=== PATIENT | female | born 1955 | race Caucasian/White ===

== ENCOUNTER 2017-01-10 10:54 | Emergency (ER) | payer SELFPAY ==
[2017-01-10 12:42] LABS: Bilirubin Negative (Negative); Clarity Hazy (Clear); Glucose, Urine (Dipstick) >=1000 mg/dL (Negative); Leukocyte Trace (Negative); Nitrite Negative (Negative); Protein, Urine (Dipstick) Negative (Neg-Trace); Urobilinogen 0.2 mg/dL (0.2-1.0); pH, Urine 5.5 (5.0-9.0)
[2017-01-10 12:43] LABS: Blood, Urine Large (Negative)
[2017-01-10 12:46] LABS: #Basophils 0.1 thou/uL (0.0-0.2); #Eosinphils 0.2 thou/uL (0.0-0.7); #Lymphocytes 1.8 thou/uL (1.20-3.40); #Monocytes 0.6 thou/uL (0.11-0.59); #Neutrophils 6.1 thou/uL (1.40-6.50); %Basophils 1.1 % (0.0-1.0); %Eosinophils 2.1 % (0.0-10.0); %Lymphocytes 20.3 % (21.0-51.0); %Monocytes 6.3 % (0.0-10.0); %Neutrophils 70.3 % (42.0-75.0); Hemoglobin 14.6 g/dL (12.0-16.0); Mean Corpuscular HGB CONC 36.2 g/dL (32.0-36.0); Mean Corpuscular Hemoglobin 32.2 pg (27.0-31.0); Mean Corpuscular Volume 88.9 fl (81.0-99.0); Mean Platelet Volume 8.2 fL (7.4-10.4); Platelet Count 181 thou/uL (130-400); RBC Distribution Width 11.6 % (11.5-14.5); Red Blood Cell (RBC) Count 4.52 mill/uL (4.20-5.40); White Blood Cell (WBC) Count 8.7 thou/uL (4.8-10.8)
[2017-01-10 12:58] LABS: Bacteria/HPF 1+ HPF (None Seen); RBC/HPF 21-50 HPF (0-3)
[2017-01-10] MEDS ORDERED: Ondansetron HCl/PF 4 MG/2 ML Vial ONE (12:59)
[2017-01-10] MEDS ORDERED: Clindamycin/D5W 600 mg/50 ml Premix Bag ONE (12:59)
[2017-01-10 13:03] LABS: ALT (SGPT) 14 U/L (8-55); AST (SGOT) 15 U/L (5-34); Albumin 4.3 g/dL (3.4-4.8); Alkaline Phosphatase 172 U/L (40-150); Anion Gap 16 mmol/L (10-20); BUN (Urea Nitrogen) 20 mg/dL (9.8-20.1); Calc. Creatinine Clearance 0 mL/min (70-130); Calcium 9.5 mg/dL (7.8-10.44); Carbon Dioxide 23 mmol/L (23-31); Chloride 100 mmol/L (98-107); Estimated GFR-MDRD 61; Globulin 3.2 g/dL (2.4-3.5); Glucose 355 mg/dL (80-115); Potassium 4.2 mmol/L (3.5-5.1); Protein, Total 7.5 g/dL (6.0-8.3); Sodium 135 mmol/L (136-145)
[2017-01-10] MEDS ORDERED: Insulin Regular 300 UNITS/3 ML VIAL ONE (13:30)
== END 2017-01-10 16:16 | disposition home or self-care (01) ==
LOC: MADERS 10:54
DX: T63.301A Toxic effect of unspecified spider venom, accidental (unintentional), initial encounter (principal); E11.65 Type 2 diabetes mellitus with hyperglycemia; N39.0 Urinary tract infection, site not specified; L08.9 Local infection of the skin and subcutaneous tissue, unspecified
CPT/HCPCS: 36416; 80053; 81001; 83880; 85025; 87040; 87070; 87077; 87086; 87186; 87205; 96365; 96367; 96375; 96376; 36415-59; J1815; J2270; J2405; J3370; J3490; J7050

== ENCOUNTER 2018-07-01 11:48 | Emergency (ER) | payer SELFPAY ==
[2018-07-01] MEDS ORDERED: Clindamycin/D5W 900 mg/50 ml Premix Bag ONE (12:46)
[2018-07-01] MEDS ORDERED: Sodium Chloride 0.9% 250 ML 250 ML ONE (12:47)
[2018-07-01 12:51] LABS: #Basophils 0.1 thou/uL (0.0-0.2); #Lymphocytes 1.3 thou/uL (1.20-3.40); #Monocytes 0.7 thou/uL (0.11-0.59); #Neutrophils 8.7 thou/uL (1.40-6.50); %Basophils 0.5 % (0.0-1.0); %Eosinophils 0.1 % (0.0-10.0); %Lymphocytes 11.7 % (21.0-51.0); %Monocytes 6.4 % (0.0-10.0); %Neutrophils 81.4 % (42.0-75.0); Hemoglobin 10.5 g/dL (12.0-16.0); Mean Corpuscular HGB CONC 34.9 g/dL (32.0-36.0); Mean Corpuscular Hemoglobin 31.3 pg (27.0-31.0); Mean Corpuscular Volume 89.6 fL (78.0-98.0); Mean Platelet Volume 6.5 fL (7.4-10.4); Platelet Count 234 thou/uL (130-400); RBC Distribution Width 11.5 % (11.5-14.5); Red Blood Cell (RBC) Count 3.34 mill/uL (4.20-5.40); White Blood Cell (WBC) Count 10.7 thou/uL (4.8-10.8)
[2018-07-01 13:05] LABS: ALT (SGPT) 13 U/L (8-55); AST (SGOT) 14 U/L (5-34); Albumin 3.6 g/dL (3.4-4.8); Alkaline Phosphatase 241 U/L (40-150); Anion Gap 16 mmol/L (10-20); BUN (Urea Nitrogen) 18 mg/dL (9.8-20.1); Bilirubin, Total 1.4 mg/dL (0.2-1.2); Calc. Creatinine Clearance 0 mL/min (70-130); Calcium 8.9 mg/dL (7.8-10.44); Carbon Dioxide 22 mmol/L (23-31); Chloride 99 mmol/L (98-107); Estimated GFR-MDRD 65; Globulin 3.4 g/dL (2.4-3.5); Glucose 434 mg/dL (80-115); Potassium 3.7 mmol/L (3.5-5.1); Sodium 133 mmol/L (136-145)
--- NOTE | 2018-07-01 13:08 | RAD ---
RIGHT FOOT THREE VIEWS: History: Pain. Infection. FINDINGS: There appears to be soft tissue swelling and possible subcutaneous emphysema along the lateral aspect of the right foot. Additionally, there appears to be edema involving the dorsum of the right foot. Chronic changes of the calcaneus. Lisfranc alignment is maintained. Joint spaces are preserved. No fr acture. IMPRESSION: 1. Soft tissue changes compatible with cellulitis. 2. No radiographic evidence of osteomyelitis. MRI if clinically warranted. POS: FANNY
[2018-07-01] MEDS ORDERED: Adacel (T-DAP) 0.5 ML VIAL ONE (14:06)
[2018-07-01] MEDS ORDERED: Ciprofloxacin Lactate/D5W 400 mg/200 ml Premix ONE (14:33)
== END 2018-07-01 14:46 | disposition short-term general hospital (02) ==
LOC: MADERS 11:48
DX: E11.621 Type 2 diabetes mellitus with foot ulcer (principal); L97.519 Non-pressure chronic ulcer of other part of right foot with unspecified severity; Z79.899 Other long term (current) drug therapy
CPT/HCPCS: 36415; 80053; 85025; 87040; 90471; 90715; 96365; 96367; 96375; J0744; J3370; J3490; J7050

== ENCOUNTER 2019-05-17 11:30 | Emergency (ER) | payer OTHER, SELFPAY ==
--- NOTE | 2019-05-17 12:11 | RAD ---
4 views of the left knee: 05/17/2019 COMPARISON: None HISTORY: Fall, trauma, pain FINDINGS: There is a comminuted transverse fracture through the midportion of the patella with 4 cm o f distraction in the craniocaudal dimension. There is an associated knee joint effusion. There is soft tissue swelling anteriorly. No evidence for dislocation. IMPRESSION: Acute fracture of the patella with marked distraction. Orthopedic consultation advised.
== END 2019-05-17 13:13 | disposition home or self-care (01) ==
LOC: MADERS 11:30
DX: S82.042A Displaced comminuted fracture of left patella, initial encounter for closed fracture (principal); S82.032A Displaced transverse fracture of left patella, initial encounter for closed fracture; E11.40 Type 2 diabetes mellitus with diabetic neuropathy, unspecified; Z79.899 Other long term (current) drug therapy; W18.30XA Fall on same level, unspecified, initial encounter

== ENCOUNTER 2020-02-05 10:24 | Emergency (ER) | payer SELFPAY ==
[2020-02-05] MEDS ORDERED: Bupivacaine PF 0.5% 30 ML VIAL ONE (11:02)
--- NOTE | 2020-02-05 12:14 | RAD ---
LEFT FOURTH FINGER 3 VIEWS: Date: 02/05/2020 HISTORY: Partial amputation, ring finger from trauma. FINDINGS: There is very extensive soft tissue injury of the distal fourth finger, as well as markedly comminute d, markedly displaced tuft fractures of the distal phalanx of the fourth finger. IMPRESSION: Bony and soft tissue amputation changes of the distal fourth finger with multiple small, displaced fr actures of the distal tuft of the distal phalanx with extensive soft tissue injury. POS: RRE
[2020-02-05] MEDS ORDERED: Triple Antibiotic Oint 1 GM Packet ONE (20:40)
== END 2020-02-05 12:50 | disposition home or self-care (01) ==
LOC: MADERS 10:24
DX: S68.125A Partial traumatic metacarpophalangeal amputation of left ring finger, initial encounter (principal); E11.40 Type 2 diabetes mellitus with diabetic neuropathy, unspecified; Z79.899 Other long term (current) drug therapy; W26.9XXA Contact with unspecified sharp object(s), initial encounter; Y92.009 Unspecified place in unspecified non-institutional (private) residence as the place of occurrence of the external cause
CPT/HCPCS: S0020

== ENCOUNTER 2020-07-25 02:04 | Emergency (ER) | payer SELFPAY ==
[2020-07-25] MEDS ORDERED: Ondansetron PF 4 MG/2 ML Vial ONE (02:12)
[2020-07-25] MEDS ORDERED: Ketorolac Tromethamine 30 MG/ML VIAL ONE (02:13)
[2020-07-25 02:35] LABS: #Basophils 0.1 thou/uL (0.0-0.2); #Eosinphils 0.1 thou/uL (0.0-0.7); #Lymphocytes 1.6 thou/uL (1.20-3.40); #Monocytes 0.5 thou/uL (0.11-0.59); #Neutrophils 5.2 thou/uL (1.40-6.50); %Basophils 0.9 % (0.0-1.0); %Eosinophils 1.7 % (0.0-10.0); %Lymphocytes 21.3 % (21.0-51.0); %Neutrophils 70.1 % (42.0-75.0); Hemoglobin 9.8 g/dL (12.0-16.0); Mean Corpuscular HGB CONC 34.3 g/dL (32.0-36.0); Mean Corpuscular Hemoglobin 30.7 pg (27.0-31.0); Mean Corpuscular Volume 89.4 fL (78.0-98.0); Mean Platelet Volume 6.1 fL (7.4-10.4); Platelet Count 244 thou/uL (130-400); RBC Distribution Width 11.9 % (11.5-14.5); Red Blood Cell (RBC) Count 3.18 mill/uL (4.20-5.40); White Blood Cell (WBC) Count 7.4 thou/uL (4.8-10.8)
[2020-07-25 02:42] LABS: Bilirubin Negative (Negative); Blood, Urine Large (Negative); Clarity Cloudy (Clear); Glucose, Urine (Dipstick) 500 mg/dL (Negative); Ketone, Urine 15 mg/dL (Negative); Leukocyte Small (Negative); Nitrite Negative (Negative); Protein, Urine (Dipstick) 30 mg/dL (Neg-Trace); Urobilinogen 0.2 mg/dL (Less than 2); pH, Urine 7.5 (5.0-9.0)
[2020-07-25 02:47] LABS: RBC/HPF 21-50 HPF (0-3)
[2020-07-25 02:48] LABS: Bacteria/HPF 1+ HPF (None Seen)
[2020-07-25 02:54] LABS: ALT (SGPT) 7 U/L (8-55); AST (SGOT) 10 U/L (5-34); Albumin 3.9 g/dL (3.4-4.8); Alkaline Phosphatase 199 U/L (40-110); Anion Gap 17 mmol/L (10-20); BUN (Urea Nitrogen) 22 mg/dL (9.8-20.1); Bilirubin, Total 0.6 mg/dL (0.2-1.2); Calc. Creatinine Clearance 0 mL/min (70-130); Calcium 9.1 mg/dL (7.8-10.44); Carbon Dioxide 21 mmol/L (23-31); Chloride 100 mmol/L (98-107); Globulin 3.3 g/dL (2.4-3.5); Glucose 516 mg/dL (80-115); Potassium 4.4 mmol/L (3.5-5.1); Protein, Total 7.2 g/dL (6.0-8.3); Sodium 134 mmol/L (136-145)
[2020-07-25] MEDS ORDERED: Morphine 4 MG/ML VIAL ONE (03:02)
[2020-07-25] MEDS ORDERED: Tamsulosin HCl 0.4 MG CAP ONE (03:12)
[2020-07-25] MEDS ORDERED: Levofloxacin 500 mg/D5W 100 ml Premix Bag ONE (03:12)
[2020-07-25] MEDS ORDERED: Promethazine HCl 25 MG/ML VIAL ONE (03:56)
[2020-07-25] MEDS ORDERED: Insulin Regular 300 UNITS/3 ML VIAL ONE (04:27)
[2020-07-25] MEDS ORDERED: Metoclopramide HCl 10 MG/2 ML VIAL ONE (05:51)
[2020-07-25] MEDS ORDERED: INSULIN REGULAR IN 0.9 % NACL 100 UNIT/100 ML BAG ONE (05:55)
[2020-07-25] MEDS ORDERED: NS 0.9% w/ 40 MEQ KCL 0 ML IV ONE (05:55)
[2020-07-25] MEDS ORDERED: NS 0.9% w/ 20 MEQ KCL 1,000 ML ONE (06:13)
[2020-07-25 06:56] LABS: ALT (SGPT) 9 U/L (8-55); AST (SGOT) 24 U/L (5-34); Albumin 3.8 g/dL (3.4-4.8); Alkaline Phosphatase 206 U/L (40-110); Anion Gap 21 mmol/L (10-20); BUN (Urea Nitrogen) 21 mg/dL (9.8-20.1); Bilirubin, Total 0.7 mg/dL (0.2-1.2); Calc. Creatinine Clearance 0 mL/min (70-130); Calcium 8.5 mg/dL (7.8-10.44); Carbon Dioxide 16 mmol/L (23-31); Chloride 104 mmol/L (98-107); Globulin 3.8 g/dL (2.4-3.5); Potassium 4.8 mmol/L (3.5-5.1); Protein, Total 7.6 g/dL (6.0-8.3); Sodium 136 mmol/L (136-145)
[2020-07-25 06:57] LABS: Glucose 388 mg/dL (80-115)
[2020-07-25] MEDS ORDERED: Sodium Chloride 0.9% 100 ML BAG ONE (07:24)
[2020-07-25] MEDS ORDERED: Acetaminophen 650 MG Suppository ONE (07:24)
[2020-07-25] MEDS ORDERED: Sodium Chloride 0.9% 1,000 ML BAG ONE (07:24)
[2020-07-25 07:48] LABS: SARS-CoV-2 NAA Rapid Test Not Detected (NotDetected)
--- NOTE | 2020-07-25 07:49 | RAD ---
Chest one view HISTORY: Chest pain. FINDINGS: No comparison. Cardiac silhouette is magnified by projection. Pulmonary vasculature is unre markable. Mediastinum is midline. No lobar consolidation or evidence of pneumothorax. IMPRESSION : No abnormalities are demonstrated.
--- NOTE | 2020-07-25 07:59 | CT ---
PRELIMINARY REPORT/DIRECT RADIOLOGY/EMERGENCY AFTER HOURS PROCEDURE: EXAM: CT Abdomen and Pelvis Without Intravenous Contrast CLINICAL HISTORY: LT FLANK PAIN TECHNIQUE: Axial computed tomography images of the abdomen and pelvis without intravenous contrast. CONTRAST: None. COMPARISON: None provided. FINDINGS: The lung bases are essentially negative. There is a small Bochdalek hernia on the right, a nd there is minimal linear density on the left. On the left side there is moderate hydronephrosis, to include pyelocaliectasis. The left ureter is dilated all the way down to the ureterovesical junctio n. No associated urinary calculus is identified on the left, however. The left kidney is not swolle n, but there is induration and stranding surrounding the left kidney and the left collecting system. On the right side the collecting system is normal, and the kidney is normal in size and shape, with n o definite calculi identified. The urinary bladder is contracted. There is diffuse moderate thickeni ng of its wall and mild induration of the surrounding fat which partially obscures its serosal surfac e. The absence of intravenous contrast decreases sensitivity in the remainder of the exam. The liver and spleen are each normal in size and without gross focal abnormality. The gallbladder is surgical ly absent. There is no dilatation of the biliary tree. Pancreas and adrenal glands are essentially negative. No acute abnormality is seen in the major abdominal vasculature. Normal size lymph nodes are identified in the retroperitoneum. There is a modest amount of fluid in the stomach. The duoden um and small bowel are unremarkable. A modest amount of fecal material is scattered throughout the c olon. An appendix is not clearly identified. There is no thickening of the colonic wall. No free i ntraperitoneal fluid or pneumoperitoneum is seen. On bone windows, no definite acute osseous abnormal ity is seen. There is small lucent areas in the vertebral bodies L1-3, most likely benign in the abs ence of known malignancy, possibly small hemangiomas or bone cysts. IMPRESSION: 1. There is hydronephrosis and edema surrounding the collecting system and kidney on the left side, but there is no urinary calculus identified. The appearance is most suggestive of recent passage of a urinary stone. A lesion at the ureterovesical junction is not absolutely excluded, however. 2. The right kidney and collecting system are normal. 3. There is concentric thickening of the urinary bladder wall with induration of the surrounding fat , but these findings might not be valid in the absence of adequate urinary bladder distention, especi ally if there is no clinical evidence of cystitis. 4. Small lucencies in 3 lumbar vertebral bodies, most likely benign incidental findings ELECTRONICALLY SIGNED BY: Matthew Cast MD Jul 25, 2020 2:57:46 AM [employer] FINAL REPORT CT ABDOMEN AND PELVIS WITHOUT IV COTNRAST: Left hydronephrosis and dilatation of the left ureter with left perinephric stranding. The urinary b ladder is contracted. A calculus is not identified; however, mucosal lesion at the left UVJ is not e xcluded. I am in agreement with the preliminary report. POS: TRACE
[2020-07-25] MEDS ORDERED: Sodium Chloride 0.9% 100 ML ONE (08:23)
[2020-07-25] MEDS ORDERED: cefTRIAXone\\ROCEPHIN 2 GM VIAL ONE (08:23)
[2020-07-25] MEDS ORDERED: Sodium Chloride 0.9% 1,000 ML ONE (08:32)
[2020-07-25] MEDS ORDERED: Vancomycin HCl 500 MG VIAL ONE (08:32)
[2020-07-25] MEDS ORDERED: Vancomycin 1.5 GRAM/300 ML BAG ONE (08:32)
== END 2020-07-25 09:14 | disposition short-term general hospital (02) ==
LOC: MADERS 02:04
DX: A41.9 Sepsis, unspecified organism (principal); E11.10 Type 2 diabetes mellitus with ketoacidosis without coma; N13.6 Pyonephrosis; Z79.899 Other long term (current) drug therapy
CPT/HCPCS: 0240U; 36416; 71045; 74176; 80053; 81003; 81015; 82010; 83605; 84484; 85025; 87040; 87086; 87149; 93005; 96361; 96365; 96366; 96367; 96368; 96375; 96376; J0696; J1815; J1885; J1956; J2270; J2405; J2550; J2765; J3370; J3480; J3490; J7050

== ENCOUNTER 2021-08-10 14:14 | Emergency (ER) | payer MEDICARE, SELFPAY ==
[2021-08-10 15:30] LABS: ALT (SGPT) 14 U/L (8-55); AST (SGOT) 17 U/L (5-34); Albumin 3.2 g/dL (3.4-4.8); Alkaline Phosphatase 297 U/L (40-110); Anion Gap 14 mmol/L (10-20); BUN (Urea Nitrogen) 18 mg/dL (9.8-20.1); Bilirubin, Total 0.6 mg/dL (0.2-1.2); Calc. Creatinine Clearance 0 mL/min (70-130); Calcium 8.7 mg/dL (7.8-10.44); Carbon Dioxide 23 mmol/L (23-31); Chloride 105 mmol/L (98-107); Globulin 2.9 g/dL (2.4-3.5); Glucose 312 mg/dL (80-115); Magnesium 2.3 mg/dL (1.6-2.6); Potassium 3.4 mmol/L (3.5-5.1); Protein, Total 6.1 g/dL (5.8-8.1); Sodium 139 mmol/L (136-145)
[2021-08-10 15:38] LABS: #Basophils 0.1 thou/uL (0.0-0.2); #Eosinphils 0.6 thou/uL (0.0-0.7); #Lymphocytes 1.4 thou/uL (1.20-3.40); #Monocytes 0.4 thou/uL (0.11-0.59); #Neutrophils 3.8 thou/uL (1.40-6.50); %Eosinophils 9.7 % (0.0-10.0); %Lymphocytes 22.4 % (21.0-51.0); %Monocytes 6.2 % (0.0-10.0); %Neutrophils 60.7 % (42.0-75.0); Hemoglobin 8.8 g/dL (12.0-16.0); Mean Corpuscular Volume 88.7 fL (78.0-98.0); Mean Platelet Volume 6.1 fL (7.4-10.4); Platelet Count 177 thou/uL (130-400); RBC Distribution Width 12.5 % (11.5-14.5); Red Blood Cell (RBC) Count 2.83 mill/uL (4.20-5.40); White Blood Cell (WBC) Count 6.2 thou/uL (4.8-10.8)
[2021-08-10 15:40] LABS: Bilirubin Negative (Negative); Blood, Urine Large (Negative); Clarity Cloudy (Clear); Glucose, Urine (Dipstick) >=1000 mg/dL (Negative); Ketone, Urine Negative (Negative); Leukocyte Small (Negative); Nitrite Positive (Negative); Protein, Urine (Dipstick) > or equal to 300 mg/dL (Neg-Trace); pH, Urine 6.5 (5.0-9.0)
[2021-08-10] MEDS ORDERED: Nitroglycerin 2% Ointment 1 INCH/1 GM Packet ONE (15:42)
[2021-08-10 15:45] LABS: WBC/HPF Greater Than 50 HPF (0-3)
[2021-08-10 15:48] LABS: Bacteria/HPF 3+ HPF (None Seen); RBC/HPF 21-50 HPF (0-3)
[2021-08-10] MEDS ORDERED: Insulin Regular 300 UNITS/3 ML VIAL ONE (16:08)
[2021-08-10] MEDS ORDERED: Potassium Chloride 20 MEQ TAB ONE (16:08)
[2021-08-10] MEDS ORDERED: Furosemide 40 MG/4 ML VIAL ONE (16:08)
[2021-08-10] MEDS ORDERED: Levofloxacin 500 mg/D5W 100 ml Premix Bag ONE (16:08)
[2021-08-10] MEDS ORDERED: Acetaminophen 500 MG TAB ONE (16:45)
[2021-08-10] MEDS ORDERED: Ibuprofen 600 MG TAB ONE (16:45)
[2021-08-10] MEDS ORDERED: Lisinopril 10 MG TAB ONE (17:51)
== END 2021-08-10 18:55 | disposition short-term general hospital (02) ==
LOC: MADERS 14:14
DX: J90 Pleural effusion, not elsewhere classified (principal); E87.70 Fluid overload, unspecified; E11.65 Type 2 diabetes mellitus with hyperglycemia; I10 Essential (primary) hypertension; E87.6 Hypokalemia; N39.0 Urinary tract infection, site not specified; E11.40 Type 2 diabetes mellitus with diabetic neuropathy, unspecified
CPT/HCPCS: 71045; 74176; 80053; 81003; 81015; 83735; 83880; 84484; 85025; 93005; 96365; 96375; J1815; J1940; J1956

== ENCOUNTER 2021-12-21 13:07 | Emergency (ER) | payer MEDICARE ==
[2021-12-21] MEDS ORDERED: Bacitracin 1 PK ONE (13:46)
[2021-12-21] MEDS ORDERED: Amoxicillin/Potassium Clav 875 MG TAB ONE (13:46)
== END 2021-12-21 13:54 | disposition home or self-care (01) ==
LOC: MADERS 13:07
DX: S61.411A Laceration without foreign body of right hand, initial encounter (principal); E11.40 Type 2 diabetes mellitus with diabetic neuropathy, unspecified; W25.XXXA Contact with sharp glass, initial encounter; Z87.442 Personal history of urinary calculi; Z79.899 Other long term (current) drug therapy

== ENCOUNTER 2023-06-05 05:32 | Emergency (ER) | payer OTHER ==
[2023-06-05 05:58] LABS: #Basophils 0.1 thou/uL (0.0-0.2); #Eosinphils 0.2 thou/uL (0.0-0.7); #Lymphocytes 1.7 thou/uL (1.20-3.40); #Monocytes 0.4 thou/uL (0.11-0.59); %Basophils 1.3 % (0.0-1.0); %Eosinophils 2.7 % (0.0-10.0); %Lymphocytes 23.5 % (21.0-51.0); %Monocytes 5.8 % (0.0-10.0); %Neutrophils 66.8 % (42.0-75.0); Hematocrit 26.1 % (36.0-47.0); Hemoglobin 8.6 g/dL (12.0-16.0); Mean Corpuscular Hemoglobin 30.6 pg (27.0-31.0); Mean Corpuscular Volume 92.9 fl (78.0-98.0); Mean Platelet Volume 6.6 fL (7.4-10.4); Platelet Count 125 10x3/uL (130-400); RBC Distribution Width 13.1 % (11.5-14.5); Red Blood Cell (RBC) Count 2.81 mill/uL (4.20-5.40); White Blood Cell (WBC) Count 7.4 10x3/uL (4.8-10.8)
[2023-06-05 06:12] LABS: ALT (SGPT) 9 U/L (8-55); AST (SGOT) 14 U/L (5-34); Albumin 3.8 g/dL (3.4-4.8); Alkaline Phosphatase 115 U/L (40-110); Anion Gap 16 mmol/L (10-20); BUN (Urea Nitrogen) 27 mg/dL (9.8-20.1); Bilirubin, Total 0.8 mg/dL (0.2-1.2); Calc. Creatinine Clearance 0 mL/min (70-130); Calcium 8.4 mg/dL (7.8-10.44); Carbon Dioxide 17 mmol/L (23-31); Chloride 108 mmol/L (98-107); Estimated GFR 23; Globulin 2.5 g/dL (2.4-3.5); Glucose 204 mg/dL (80-115); Potassium 4.1 mmol/L (3.5-5.1); Protein, Total 6.3 g/dL (5.8-8.1); Sodium 137 mmol/L (136-145)
[2023-06-05 06:13] LABS: Troponin I 0.015 ng/mL (< 0.028)
[2023-06-05 06:37] LABS: SARS-CoV-2 NAA Rapid Test Not Detected (NotDetected)
[2023-06-05] MEDS ORDERED: Furosemide 20 MG/2 ML VIAL ONE (06:51)
[2023-06-05] MEDS ORDERED: Furosemide 40 MG/4 ML VIAL ONE (06:51)
[2023-06-05 09:23] LABS: Bilirubin Negative (Negative); Blood, Urine Negative (Negative); Clarity Clear (Clear); Glucose, Urine (Dipstick) 100 mg/dL (Negative); Ketone, Urine Negative (Negative); Leukocyte Trace (Negative); Nitrite Negative (Negative); Protein, Urine (Dipstick) > or equal to 300 mg/dL (Neg-Trace); Urobilinogen 0.2 mg/dL (Less than 2)
[2023-06-05 09:26] LABS: Bacteria/HPF 1+ HPF (None Seen); CAUTI Indications for Culture Dysuria,urgency,freq; RBC/HPF 0-3 HPF (0-3)
[2023-06-05 09:27] LABS: Urine Culture Reflex Yes Yes
[2023-06-05] MEDS ORDERED: NIFEdipine XL 30 MG ER.TAB PO SCH (09:30)
== END 2023-06-05 15:00 | disposition short-term general hospital (02) ==
LOC: MADERS 05:32
DX: J80 Acute respiratory distress syndrome (principal); D64.9 Anemia, unspecified; I10 Essential (primary) hypertension; E87.70 Fluid overload, unspecified; I12.9 Hypertensive chronic kidney disease with stage 1 through stage 4 chronic kidney disease, or unspecified chronic kidney disease; E11.22 Type 2 diabetes mellitus with diabetic chronic kidney disease; N18.9 Chronic kidney disease, unspecified; E11.40 Type 2 diabetes mellitus with diabetic neuropathy, unspecified; Z20.822 Contact with and (suspected) exposure to COVID-19; Z79.4 Long term (current) use of insulin; Z79.84 Long term (current) use of oral hypoglycemic drugs; Z79.899 Other long term (current) drug therapy; Z89.421 Acquired absence of other right toe(s)
CPT/HCPCS: 71045; 80053; 81001; 83605; 83880; 84484; 85025; 85379; 87086; 93005; 94760; U0002; 96374; J1940